=== PATIENT | female | born 1975 | race Caucasian/White ===

== ENCOUNTER 2017-11-27 12:10 | Day surgery (SDC) | payer OTHER ==
[~2017-11-27 12:10] MED LIST: Buffered Lidocaine 0.9% SYRIN* 5 ML/SYR SYRINGE INTRADERM ONE
[2017-11-27] MEDS ORDERED: ceFAZolin 2 GM in NS PREMIX(*) 2 GM/100 ML BAG IVPB ONE (12:27)
[2017-11-27] MEDS ORDERED: fentaNYL* 50 MCG/ML 2 ML VIAL (100 MCG VIAL) ONE (13:16)
[2017-11-27] MEDS ORDERED: Midazolam* 1 MG/ML 2 ML VIAL (2 MG) ONE (13:16)
[2017-11-27] MEDS ORDERED: Succinylcholine* 20 MG/ML 10 ML VIAL ONE (13:19)
[2017-11-27] MEDS ORDERED: Propofol* 10 MG/ML 20 ML BTL IV PUSH ONE (13:19)
[2017-11-27] MEDS ORDERED: Lidocaine 2% PF * 5 ML VIAL ONE (13:20)
[2017-11-27] MEDS ORDERED: Rocuronium* 10 MG/ML VIAL ONE (13:22)
[2017-11-27] MEDS ORDERED: Dexamethasone IV* 4 MG/ML 1 ML (4 MG) ONE (14:16)
[2017-11-27] MEDS ORDERED: Scopolamine 1.5 mg* PATCH ONE (14:42)
[2017-11-27] MEDS ORDERED: Bupivacaine 0.25% SDV PF* 10 ML VIAL INJ ONE (14:50)
[2017-11-27] MEDS ORDERED: HYDROmorphone INJ1* 1 MG/ML SYRINGE IV PRN (15:02)
[2017-11-27] MEDS ORDERED: DiMENhydriNATE IV* 50 MG/ML VIAL IV PUSH PRN (15:02)
[2017-11-27] MEDS ORDERED: Naloxone* 0.4 MG/ML 1 ML VIAL IV PRN (15:02)
[2017-11-27] MEDS ORDERED: Ondansetron INJ* 2 MG/ML VIAL ONE (15:04)
[2017-11-27] MEDS ORDERED: Metoclopramide IV* 5 MG/ML 2 ML VIAL ONE (15:04)
[2017-11-27] MEDS ORDERED: Acetaminophen IV 1GM/100ML * 100 ML ONE (15:05)
[2017-11-27] MEDS ORDERED: Ketorolac INJ* 30 MG/ML 1 ML VIAL ONE (15:25)
[2017-11-27] MEDS ORDERED: Glycopyrrolate IV* 0.2 MG/ML 1 ML VIAL ONE (15:27)
[2017-11-27] MEDS ORDERED: Neostigmine Methylsulfate* 1 MG/ML 10 ML VIAL (1 mg/ml) ONE (15:27)
[2017-11-27] MEDS ORDERED: EPHEDrine (Pressors)* 50 MG/ML VIAL ONE (15:42)
[2017-11-27] MEDS ORDERED: HYDROmorphone INJ1* 1 MG/ML SYRINGE ONE (16:28)
[2017-11-27] MEDS ORDERED: DiMENhydriNATE IV* 50 MG/ML VIAL ONE (16:42)
[2017-11-27] MEDS ORDERED: oxyCODONE/Acetamin 5/325 MG* TAB ONE (17:36)
[2017-11-27 17:37] VITALS: BP 138/83
--- NOTE | 2017-11-28 15:26 | OP ---
CC: PCP, Kendra Bassett MD * DATE OF OPERATION: 11/27/17 - [facility] DATE OF : 75 SURGEON: Cullen Perla MD. SAFETY SUPERVISOR: NISHA Cantu. An data control assistant was needed for the entirety of the case to help with positioning, retraction, and was utilized throughout all portions of the case. ANESTHESIOLOGIST: Dr. Hurtado. ANESTHESIA: General interscalene block. PRE-OP DIAGNOSES: Right shoulder high-grade, partial-thickness tear of the rotator cuff with bicipital tendinitis and SLAP tear. POST-OP DIAGNOSES: Right shoulder high-grade, partial-thickness tear of the rotator cuff with bicipital tendinitis and SLAP tear. OPERATIVE PROCEDURE: 1. Right shoulder arthroscopy with extensive glenohumeral debridement. 2. Revision decompression and debridement. 3. Revision rotator cuff repair of the supraspinatus in a double-row fashion. 4. Open subpectoral biceps tenodesis. INDICATIONS: The patient is a 42-year-old female who has had persistent shoulder pain for a number of years. Approximately 17 years ago she had surgery by Dr. Hobson, which is a right shoulder rotator cuff repair, decompression, and debridement. She never quite did well, was unable to get back to sports such as volleyball and always had issues with throwing and overhead activities. She continued to persist; she did not want surgical treatment. Risks and benefits were discussed at length included, but not limited to, bleeding; infection; damage to nerves, vessels, surrounding structures; wound nonhealing; persistent pain; need for further surgery; scarring; stiffness; incomplete relief of symptoms; risk of anesthesia. COMPLICATIONS: None. ESTIMATED BLOOD LOSS: Minimal. IMPLANTS USED: One 4.75 Healicoil with 2 MultiFIX and one 2.8-mm Q-Fix anchor. DESCRIPTION OF PROCEDURE: The patient was greeted in the preoperative area by the attending surgeon. Correct extremity was marked and consent was confirmed. The patient underwent interscalene nerve block by the anesthesiologist. She was then brought back to the operating suite, where she was placed in supine position on the operating table. She then underwent general anesthesia and endotracheal intubation, after which she was placed in left lateral decubitus position with an axillary roll. All bony prominences were padded. She was secured with a pegboard. The right shoulder was draped unsterile with 10 pounds of traction. The right shoulder was prepped and draped in the usual sterile fashion beginning with chlorhexidine soap, scrub, and alcohol wipe, and a final prep with ChloraPrep. After appropriate surgical pause indicating site, side, procedure, and administration of antibiotics, a standard postero-lateral portal was made sharply with 11 blade. The scope was introduced to the joint. Joint was examined. There were minimal glenohumeral changes with grade 0 to 1 changes. The anterior, posterior, and superior labrum had mild fraying. The superior labrum had a type 2 SLAP tear with synovitis and the entire joint was erythematous and inflamed. The inferior recess was intact. There were no loose bodies present. The undersurface of the rotator cuff had unstable tearing with a moderate-sized flap. At this point, the biceps was tenotomized for later tenodesis after the anterior portal was made and a shaver was used to debride back the anterior, posterior, superior labrum. The subscap was identified and found to be intact. The undersurface of the supraspinatus again had high-grade, partial-thickness tearing. This was then marked with an 0 PDS suture and was found to have very little resistance to the needle which is due to the face that there was actually a full-thickness tear. There were no obvious sutures that were apparent to be removed. The attention was then directed to subacromial space. With the scope in the subacromial space, the shaver was used to remove the bursa that was present. There was evidence of an irregular anterolateral spur, which was debrided back using a 4-0 oval bur. All of this debris was removed from this portion of the case. Attention was then directed to the rotator cuff , which was gently probed. It was found to be thin and an area where it had been previously marked had significant high-grade, partial-thickness tear. At this point, decision was made to take down the tendon as this was probably more than 75% to 100% of the tendon. The shaver was used to debride back the tendon until healthy tissue was identified. The greater tuberosity was skeletonized using electrocautery device. The rasp and the 4-0 oval bur were then used to gently decorticate. The patient had excellent quality bone and the cuff was then mobilized to be approximated. The greater tuberosity was then prepared and through a separate stab incision, a 4.75 Healicoil was placed with excellent purchase. Again, the bone quality was excellent. The starting awl was then used to make microfractures for greater chance of healing. The sutures were then passed through in a horizontal mattress configuration and then tied down using arthroscopic knot tying technique. There was a small dog ear, so a free suture was placed through the dog ear, to later be reapproximated. At this point, the suture ends were split and passed through 2 separate MultiFIX, one was anterior, one was posterior, and these were placed with excellent purchase to allow for a double-row fixation. The final images were obtained. The shoulder was taken through range of motion. The wounds were copiously irrigated. Attention was directed to the biceps. The bed was air planed to the right side. The anterior aspect of the shoulder was prepped again using ChloraPrep. A 15 blade was used to make an incision in line with the biceps tendon. The soft tissues were carefully dissected to expose the intact fascia. Once identified, the remainder of the resection was done bluntly. The biceps was then brought through the wound and extended. It was found to have abundant synovitis and erythema. The groove was repaired in the usual fashion with electrocautery, the red ball rasp, and osteotome to allow for a bony bleeding bed. The Q-Fix anchor was drilled unicortically. The Q-Fix afforded excellent purchase. Sutures were then passed in Aramis-Kalpesh type configuration and the excess stump was excised. Biceps was shuttled back into the wound. Wounds were copiously irrigated. Portals were closed with 3-0 nylon. The anterior wound was closed in layers with 2-0 Vicryl and 3-0 Monocryl. Sterile dressings were applied. A Cryo/Cuff and UltraSling were applied. She was awoken from anesthesia and transferred to the PACU in stable condition. POSTOPERATIVE PLAN: She will be nonweightbearing. She will be in a sling for 6 weeks. She will be discharged on pain medication, antibiotics. I will see the patient back in 10 to 14 days. DVT prophylaxis considered but deferred due to no previous personal or family history. [id number]/[facility] #: [id number] [address] H[facility]PITAL[facility]indy
== END 2017-11-27 18:11 | disposition home or self-care (01) ==
LOC: OR 12:10
PROVIDERS: ATTEND Orthopaedic Surgery
DX: S46.011A Strain of muscle(s) and tendon(s) of the rotator cuff of right shoulder, initial encounter (principal); M75.21 Bicipital tendinitis, right shoulder; S43.491A Other sprain of right shoulder joint, initial encounter; X58.XXXA Exposure to other specified factors, initial encounter; Y92.9 Unspecified place or not applicable; G89.18 Other acute postprocedural pain; J30.2 Other seasonal allergic rhinitis
CPT/HCPCS: A9270-GY; C1713; C1776; J0330; J0690; J1100; J1170; J1240; J1885; J2250; J2405; J2704; J2710; J2765; J3010; J3490